=== PATIENT | male | born 1980 | race Caucasian/White ===

== ENCOUNTER 2018-09-23 16:14 | Emergency (ER) | payer OTHER ==
[~2018-09-23] VITALS: Ht 185.4 cm; Wt 79.4 kg
[2018-09-23] MEDS ORDERED: DICLOFENAC SODI50 MG PO (20:03)
== END 2018-09-23 20:46 | disposition home or self-care (01) ==
LOC: ER 16:14
DX: S90.112A Contusion of left great toe without damage to nail, initial encounter (principal); W21.02XA Struck by soccer ball, initial encounter; Y93.89 Activity, other specified; Y92.89 Other specified places as the place of occurrence of the external cause; Y99.8 Other external cause status

== ENCOUNTER → 2019-02-19 | Outpatient (CLI) | payer OTHER ==
[~2019-02-19] MED LIST: DICLOFENAC SODI50 MG PO
== END | disposition home or self-care (01) ==
LOC: RAD 12:58
DX: S76.012D Strain of muscle, fascia and tendon of left hip, subsequent encounter (principal); K80.12 Calculus of gallbladder with acute and chronic cholecystitis without obstruction

== ENCOUNTER 2021-04-28 11:22 | Outpatient (CLI) | payer OTHER | END 2021-04-28 11:23 | disposition home or self-care (01) | LOC: RAD 11:22 | DX: M77.02 Medial epicondylitis, left elbow (principal) ==

== ENCOUNTER 2021-11-14 08:40 | Outpatient (CLI) | payer OTHER | END 2021-11-14 08:43 | disposition home or self-care (01) | LOC: NUCLEAR 08:40 | PROVIDERS: ATTEND Internal Medicine | DX: R00.2 Palpitations (principal) ==

== ENCOUNTER 2021-12-28 09:43 | Emergency (ER) | payer OTHER ==
[~2021-12-28] VITALS: Ht 185.4 cm; Wt 81.6 kg
[2021-12-28] MEDS ORDERED: KETO10TA2 PO (13:03)
== END 2021-12-28 13:06 | disposition home or self-care (01) ==
LOC: ER 09:43
DX: R10.2 Pelvic and perineal pain (principal)

== ENCOUNTER 2024-04-06 10:50 | Emergency (ER) | payer OTHER ==
[~2024-04-06] VITALS: Ht 185.4 cm; Wt 81.6 kg
[~2024-04-06 10:50] MED LIST changes: +KETO10TA2 PO
[2024-04-06] MEDS ORDERED: KETOROLAC TROMETHAMINE 30 MG VIAL IM ONE (12:30)
[2024-04-06] MEDS ORDERED: KETOROLAC TROMETHAMINE 30 MG VIAL ONE (12:59)
[2024-04-06 13:53] LABS: PH,URINE 7.5 (5.0-8.0); URINE APPEARANCE Error; URINE BILIRRUBIN Negative (NEGATIVE); URINE BLOOD Negative; URINE COLOR Yellow; URINE GLUCOSE Negative (NEGATIVE); URINE KETONE Negative (NEGATIVE); URINE LEUKOCYTE Small; URINE NITRATE Negative; URINE PROTEIN Trace (NEGATIVE); URINE UROBILINOGEN 0.2 E.U./dl
[2024-04-06 13:58] LABS: HEMATOCRIT 48.7 % (39.0-48.0); HEMOGLOBIN 17.1 g/dL (13-16.00); MEAN CELL VOLUME 86.8 fL (80.0-100.00); MEAN CORPUSCULAR HEMOGLOBIN 30.5 pg (27.00-32.0); MEAN CORPUSCULAR HGB CONC 35.1 g/dl (32.0-36.0); PLATELET COUNT 272 K/uL (150-450); RED CELL DISTRIBUTION WIDTH 13.9 % (11.5-14.5); URINE BACTERIA 12.2 uL (0.0-1933); URINE RBC 6.1 uL (0.0-20.8); URINE WBC 186.4 uL (0.0-23.2)
[2024-04-06 14:00] LABS: URINE EPITHELIAL CELLS 0.3 uL (0.0-38.8)
[2024-04-06 14:18] LABS: CALCIUM 9.8 mg/dL (8.5-10.1); CREATININE SERUM 1.02 mg/dL (0.70-1.30); GFR 80.48; POTASSIUM 4.71 mEq/L (3.5-5.1)
== END 2024-04-06 16:23 | disposition home or self-care (01) ==
LOC: ER 10:50
PROVIDERS: General Practice
DX: N45.2 Orchitis (principal); N50.812 Left testicular pain